=== PATIENT | male | born 1930 | race Caucasian/White ===

== ENCOUNTER 2019-06-01 10:28 | Emergency (ER) | payer OTHER, MEDICARE ==
--- NOTE | 2019-06-01 11:06 | EDM.PDOC ---
ED HPI GENERAL MEDICAL PROBLEM - General Chief Complaint: General Stated Complaint: SENT BY [facility] HIGH BLOOD PRESSURE Time Seen by Provider: 06/01/19 10:42 Source of Information: Reports: Patient History Limitations: Reports: No Limitations - History of Present Illness INITIAL COMMENTS - FREE TEXT/NARRATIVE: The patient presents from the [facility] for [facility]. He has no chest pain , shortness of breath or headache. He did mention these symptoms at the clinic. He just moved up here from [place]. He had no changes in his meds. 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, Type II Social & Family History - Tobacco Use Smoking Status *Q: Never Smoker ED ROS GENERAL - Review of Systems Review Of Systems: See Below Constitutional: Reports: No Symptoms HEENT: Reports: No Symptoms Respiratory: Reports: No Symptoms Cardiovascular: Reports: No Symptoms Endocrine: Reports: No Symptoms GI/Abdominal: Reports: No Symptoms : Reports: No Symptoms Musculoskeletal: Reports: No Symptoms Skin: Reports: No Symptoms ED EXAM, GENERAL - Physical Exam Exam: See Below Exam Limited By: No Limitations General Appearance: Alert, No Apparent Distress Ears: Normal External Exam Nose: Normal Inspection Head: Atraumatic, Normocephalic Neck: Normal Inspection Respiratory/Chest: No Respiratory Distress, Lungs Clear, Normal Breath Sounds Cardiovascular: Regular Rate, Rhythm, No Edema, No Murmur GI/Abdominal: Soft, Non-Tender, No Organomegaly, No Mass Back Exam: Normal Inspection Extremities: Normal Inspection Course - Vital Signs Last Recorded V/S: Last Vital Signs Temp 98.1 F 06/01/19 10:41 Pulse 57 L 06/01/19 10:41 Resp 16 06/01/19 10:41 BP 160/76 H 06/01/19 10:41 Pulse Ox 93 L 06/01/19 10:41 Departure - Departure Time of Disposition: 11:10 Disposition: Home, Self-Care 01 Condition: Good Clinical Impression: Hypertension Qualifiers: Hypertension type: essential hypertension Qualified Code(s): I10 - Essential ( primary) hypertension - Discharge Information *PRESCRIPTION DRUG MONITORING PROGRAM REVIEWED*: Not Applicable *COPY OF PRESCRIPTION DRUG MONITORING REPORT IN PATIENT RAPHAEL: Not Applicable Referrals: Kandice Mina MD [Primary Care Provider] - 1 Week Additional Instructions: Take your medication as prescribed. Take a full metoprolol daily. Sepsis Event Note - Evaluation Sepsis Screening Result: No Definite Risk - Focused Exam Vital Signs: Vital Signs Temp Pulse Resp BP Pulse Ox 06/01/19 10:41 98.1 F 57 L 16 160/76 H 93 L Date Exam was Performed: 06/01/19 Time Exam was Performed: 11:01
== END 2019-06-01 11:28 | disposition home or self-care (01) ==
LOC: JD.ED 10:28
CPT/HCPCS: 99282; 99283